=== PATIENT | male | born 1975 | race Caucasian/White ===

== ENCOUNTER 2021-09-12 06:23 | Emergency (ER) | payer SELFPAY ==
[2021-09-12 06:29] VITALS: BP 155/91; PULSE 75; RESP 16; TEMP 36.8; O2SAT 98
--- NOTE | 2021-09-12 06:32 | ED.GENADUL_ITS ---
Discharge Plan Disposition Patient Disposition: STILL A PATIENT Condition: Good Discharge Details Clinical Impression: Left flank pain ED Provider: Duc Hurtado Home Meds and New Rx's Prescriptions: No Action mirtazapine 30 mg Tablet 30 mg PO QHS ibuprofen 200 mg Tablet 200 - 600 mg PO Q6H PRN Medical Decision Making This is a 46-year-old male with a past medical history of kidney stones who presents today for symptoms concerning for kidney stone. Patient states that starting last night he developed left-sided flank pain that radiates down towards his left abdomen. He has been peeing frequently and has been able to slightly relieve the pain symptoms when he takes a hot bath, but otherwise the symptoms have persisted. He tried to go into work today but noticed that the symptoms were notably severe and came to the ER for further management. He has taken ibuprofen with only some mild relief. He denies any chest pain, vomiting, hematuria, or diarrhea. He states that this feels similar to previous kidney stones. No other complaints at this time. No other modifying factors. He admits to previous stones, but has never needed stenting or surgery before. Exam demonstrates a well-appearing but slightly uncomfortable male, notable movement similar to renal colic. Exam demonstrates left CVA tenderness, but no pain or McBurney's point, negative Arvizu sign. Symptoms are most concerning for kidney stone. We will get urinalysis, renal CT imaging, rehydrate, give Flomax, medications to help manage pain, monitor closely and reassess. HPI General Date/Time Provider Initiated Documentation: 09/12/21 06:26 . HPI Narrative: This is a 46-year-old male with a past medical history of kidney stones who presents today for symptoms concerning for kidney stone. Patient states that starting last night he developed left-sided flank pain that radiates down towards his left abdomen. He has been peeing frequently and has been able to slightly relieve the pain symptoms when he takes a hot bath, but otherwise the symptoms have persisted. He tried to go into work today but noticed that the symptoms were notably severe and came to the ER for further management. He has taken ibuprofen with only some mild relief. He denies any chest pain, vomiting, hematuria, or diarrhea. He states that this feels similar to previous kidney stones. No other complaints at this time. No other modifying factors. He admits to previous stones, but has never needed stenting or surgery before. Related Data Home Medications Medication Instructions Recorded Confirmed ibuprofen 200 mg tablet 200 - 600 mg PO Q6H PRN 09/12/21 09/12/21 mirtazapine 30 mg tablet 30 mg PO QHS 09/12/21 09/12/21 Allergies Allergy/AdvReac Type Severity Reaction Status Date / Time No Known Allergies Allergy Unverified 09/12/21 06:31 General Stated Complaint: FlankPain GRACE: 3 Review of Systems All systems reviewed & are unremarkable except as noted in HPI and below PFSH All Active Problems (Updated 09/12/21 @ 06:34 by Duc Hurtado DO) Left flank pain (Acute) Social History Smoking/Tobacco Use Status: Never Smoking risk assessment performed?: Yes Alcohol Intake: current Alcohol Intake frequency: holidays/special occasions only Alcohol type: beer Drug use: Never Substance use type: does not use Do you feel safe at home: Yes Do you feel safe in your relationship?: Yes Exam Narrative Exam Narrative: 1.Const: Well-nourished, Well-developed, appearing stated age 2.Eyes: PERRL, no conjunctival injection, and symmetrical lids. 3.ENT: Atraumatic external nose and ears. Moist MM. Neck: Symmetric, trachea midline, No thyromegaly. 4.CVS: +S1/S2, No murmurs or gallops. Peripheral pulses 2+ and equal in all extremities. Brisk capillary refill in all extremities. 5.RESP: Unlabored respiratory effort. Clear to auscultation bilaterally. No wheezes rales or rhonchi 6.GI: Soft, Nontender/Nondistended, No hepatosplenomegaly. No guarding or rebound. No pain or McBurney's point, negative Arvizu sign. Nontender genital exam. Mild left CVA tenderness. 7.MSK: Normocephalic/Atraumatic, Extremities w/o deformity or ttp No cyanosis or clubbing, Normal movement of all extremities 8.Skin: Warm, Dry. No rashes or lesions. 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 Sensation grossly intact, no focal neurologic deficits. 10.Psych: (AAO) x3. Appropriate mood and affect Course Vital Signs Vital signs: Vital Signs Temperature 36.8 C 09/12/21 06:29 Pulse 75 09/12/21 06:29 Respiratory Rate 16 09/12/21 06:29 Blood Pressure 155/91 H 09/12/21 06:29 Pulse Oximetry 98 09/12/21 06:29 Temperature 36.8 C 09/12/21 06:29 Temperature Source Skin 09/12/21 06:29 Pulse 75 09/12/21 06:29 Respiratory Rate 16 09/12/21 06:29 Blood Pressure 155/91 H 09/12/21 06:29 Blood Pressure Position Supine 09/12/21 06:29 Pulse Oximetry 98 09/12/21 06:29 Oxygen Delivery Method Room Air 09/12/21 06:29 Oxygen Flow Rate 0 09/12/21 06:29 Pain Level 8 09/12/21 06:29
[2021-09-12] MEDS: MORPHine 4 MG/ML SYR IVP (06:51)
[2021-09-12] MEDS: Normal Saline 1,000 ML 1000 ML IV (06:51)
[2021-09-12] MEDS: ACETAMINOPHEN 1,000 MG/100 ML BTL 400 MG IVPB (06:52)
[2021-09-12] MEDS: Tamsulosin 0.4 MG CAPCR PO (06:52)
[2021-09-12 07:09] LABS: Abs Immature Grans 0.06 10^3/uL (0.0-0.06); Absolute Eosinophil Count 0.69 10^3/uL (0.0-0.7); Absolute Monocyte Count 0.75 10^3/uL (0.1-0.8); Absolute Neutrophil Count 9.14 10^3/uL (1.2-6.7); Basophils % 0.8; Eosinophils % 5.7; HCT 41.3 % (40.0-50.0); HGB 14.1 g/dL (13.5-17.5); Immature Grans % 0.5; Lymphocytes % 10.8; MCH 31.7 pg (27.0-33.0); MCHC 34.1 % (32.0-36.0); MCV 93 fL (80-95); MPV 12.7 fL (8.0-11.0); Monocytes % 6.2; Platelet Count 188 10^3/uL (130-400); RBC 4.45 10^6/uL (4.36-5.78); RDW 12.4 % (11.8-14.1); RDW-SD 42.3 fL; WBC 12.03 10^3/uL (4.4-10.8)
[2021-09-12 07:26] LABS: ALT 34 U/L (16-63); AST 24 U/L (15-37); Albumin 3.8 g/dL (3.4-5.0); Alkaline Phosphatase 67 U/L (46-116); BUN 13 mg/dL (7-18); Bilirubin, Total 0.4 mg/dL (0.2-1.0); CREATININE 1.4 mg/dL (0.70-1.30); Calcium 9.1 mg/dL (8.5-10.1); Chloride 104 mmol/L (98-107); Estimated GFR 54.09 (mL/min/1.73m2); Glucose 114 mg/dL (74-106); Potassium 3.8 mmol/L (3.5-5.1); Sodium 141 mmol/L (136-145); Total Protein 6.7 g/dL (6.4-8.2)
--- NOTE | 2021-09-12 07:49 | DI.CT_ITS ---
Exam(s) CT RENAL COLIC WO EXAM: CT RENAL COLIC WO CLINICAL HISTORY: left flank pain, r/o stone. TECHNIQUE: Imaging Protocol: Axial computed tomography images with coronal and sagittal reformatted images were created and reviewed. COMPARISON: No exams were available for comparison FINDINGS: ABDOMEN: Lung Bases: Dependent atelectasis. Liver: Normal density. No measurable mass. Gallbladder and biliary tract: No radiodense calculus or biliary ductal dilation. Pancreas: Normal density, no abnormal calcifications or inflammatory process. Spleen: Normal. Kidneys: Normal size, contour and axis.There is bilateral nephrolithiasis. There are 2 stones seen a t the left UVJ. The larger measures 0.6 cm. The smaller measures 0.2 cm. There is moderate hydrone phrosis. Left perinephric stranding is seen likely secondary to the obstruction. No masses seen. Adrenal glands: No mass is seen. Lymph nodes: Within normal limits. Abdominal Aorta: Abdominal portion non-dilated. Mild atherosclerosis. PELVIS: Bladder:Symmetric distention, no gross wall thickening. Bowel: No obstruction or bowel wall thickening. Appendix is unremarkable. Peritoneal cavity: No ascites, collection or mesenteric inflammatory response. No free air. Reproductive organs: Unremarkable as visualized. Bones: Within normal limits. Soft Tissues: There is a small fat containing umbilical hernia. IMPRESSION: 1. Two stones at the left UVJ causing moderate hydronephrosis. 2. Bilateral nephrolithiasis. 3. Results of this exam have been verbally communicated with provider. RADIATION DOSE DELIVERED: 697.78mGy.cm Total DLP DATA REPOSITORY: All CT scans at this facility are submitted to the National Radiology Data Registry (NRDR) Dose Index Registry (DIR) with the [employer] ([employer]). RADIATION OPTIMIZATION: All CT scans at this facility use at least one of these dose optimization te chniques: automated exposure control; mA and/or kV adjustment per patient size (includes targeted exa ms where dose is matched to clinical indication); or iterative reconstruction.
[2021-09-12 08:09] LABS: Bilirubin Negative (Negative); Blood Moderate (Negative); Clarity Clear (Clear); Glucose Negative (Negative); Ketones Negative (Negative); Leukocyte Esterase Negative (Negative); Nitrite Negative (Negative); Specific Gravity 1.015 (1.005-1.025); Urobilinogen 0.2 EU/dL (Up TO 0.2)
[2021-09-12 08:20] LABS: Bacteria Negative HPF (Negative); C & S Indicated? No; Casts Negative LPF (Negative); Crystals Negative HPF (Negative); Epithelial Cells Rare HPF (Negative); Mucus Negative (Negative); WBC Negative HPF (0-5)
--- NOTE | 2021-09-12 08:23 | ED.PROG_ITS ---
Date of service: 09/12/21 Time of Service: 08:23 Medical Decision Making Received signout from Dr. Hurtado. Please see his note regarding details of the initial presentation, exam and plan of care. Patient improved subjectively with significantly less pain. His urinalysis shows red blood cells but no evidence of infection. CT scan with bilateral intrarenal stones and a left distal ureteral stone at the ureterovesicular junction. Patient has managed with Flomax in the past. He is improved but is consented for the use of a small number of narcotic analgesia as needed. He will follow-up with his providers in his home state as he is here for a short- term work contract. He understands return precautions to the ER. Sign Out Sign Out Data: Sign Out Comment: Left flank pain, suspect kidney stone. Follow-up on labs and imaging Last updated by Duc Hurtado DO at 09/12/21 07:27 Discharge Plan Disposition Patient Disposition: HOME Condition: Good Discharge Details Clinical Impression: Left flank pain Primary Care Provider: Gertrude,Local ED Provider: Aidan Garcia Home Meds and New Rx's Prescriptions: New tamsulosin [Flomax] 0.4 mg capsule 0.4 mg PO DAILY Qty: 7 0RF Continued mirtazapine 30 mg Tablet 30 mg PO QHS ibuprofen 200 mg Tablet 200 - 600 mg PO Q6H PRN Discharge Instructions Instructions: Flank Pain (ED) Additional Instructions: Stay liberally hydrated. Take the Flomax once daily while you are having pain. This medicine can cause lightheadedness when rising quickly to a standing position. Return if develop a fever, ongoing pain, or any other acute concerns. May continue ibuprofen 600 to 800 mg 3 times daily. You may also use the provided hydrocodonel/acetaminophen as needed for severe or breakthrough pain. Follow-up with regular doctor at home for recheck.
--- NOTE | 2021-09-12 09:58 | DI.VRAD_ITS ---
PROCEDURE INFORMATION: Exam: CT Abdomen And Pelvis Without Contrast Exam date and time: 09/12/2021 7:46 AM Age: 46 years old Clinical indication: Abdominal pain; Patient HX: Left flank pain, HX of kidney stones. TECHNIQUE: Imaging protocol: Computed tomography of the abdomen and pelvis without contrast. Radiation optimization: All CT scans at this facility use at least one of these dose optimization techniques: automated exposure control; mA and/or kV adjustment per patient size (includes targeted exams where dose is matched to clinical indication); or iterative reconstruction. COMPARISON: No relevant prior studies available. FINDINGS: Limitations: Evaluation of the solid organs and vasculature is limited in the absence of IV contrast. Lungs: Subpleural basilar hypoventilatory changes. Mediastinal space: Diffuse mild wall thickening of the distal esophagus which may be secondary to esophagitis. Liver: The liver is partially excluded from the field of view. Included portions are unremarkable. Gallbladder and bile ducts: Normal. No calcified stones. No ductal dilation. Pancreas: Normal. No ductal dilation. Spleen: Normal. No splenomegaly. Adrenal glands: Normal. No mass. Kidneys and ureters: Numerous bilateral nonobstructing kidney stones. Two obstructing stones are identified within the distal right ureter. The more distal and larger of the 2 stones measures of 5 mm. The more proximal stone measures 2 mm. Moderate left hydroureteronephrosis . Moderate left perinephric fat stranding and fluid which could be inflammatory or secondary to forniceal rupture. Stomach and bowel: Colonic diverticulosis without evidence of diverticulitis. No obstruction or significant mucosal thickening. Appendix: No evidence of appendicitis. Intraperitoneal space: Unremarkable. No free air. No significant fluid collection. Vasculature: Unremarkable. No abdominal aortic aneurysm. Lymph nodes: Unremarkable. No enlarged lymph nodes. Urinary bladder: Unremarkable as visualized. Reproductive: Unremarkable as visualized. Bones/joints: Unremarkable. No acute fracture. Soft tissues: Small fat containing umbilical hernia. IMPRESSION: Two obstructing stones within the distal left ureter, the larger of which measures 5 mm. Moderate left hydroureteronephrosis and perinephric fat stranding/fluid. Perinephric fat stranding/fluid may represent inflammatory changes versus forniceal rupture. Dictated and Authenticated by: Wei Price MD. Ordering:SAM Xavier MD
== END 2021-09-12 09:01 | disposition home or self-care (01) ==
PROVIDERS: Student in an Organized Health Care Education/Training Program; Emergency Provider Emergency Medicine
DX: R10.9 Unspecified abdominal pain (principal); N20.2 Calculus of kidney with calculus of ureter
CPT/HCPCS: 80053; 96361; 96374; 96375; 99284; 74176; 81003; 81015; 85025; J0131; J2270